=== PATIENT | female | born 1970 | race Caucasian/White ===

== ENCOUNTER 2017-07-30 11:45 | Emergency (ER) | payer OTHER ==
[~2017-07-30] VITALS: Ht 154.9 cm; Wt 70.3 kg
[~2017-07-30 11:45] MED LIST: ACID REDUCER; AMOXICILLIN500 MG PO; CATAFLAM50 MG PO; CYMBALTA30 MG PO; DIFLUCAN150 MG PO; IBU800 M1 PO; MIGRAINE CAPSUL1 CAP PO; MIGRAINE MED; MOTRIN,RUFEN400 MG; MOTRIN800 MG PO; NORFLEX100 MG PO; PRILOSEC20 M1 PO; PRILOSEC20 MG PO; TYLENOL W/CODEI1 TA2 PO; VICODIN 5/500 505 MG; VICODIN 5/500 505 MG PO; VICODIN 500 MG-1 TAB PO; VICODIN ES 7501 TAB PO; ZITHROMAX Z PA250 MG PO
== END 2017-07-30 13:40 | disposition home or self-care (01) ==
LOC: ED 11:45
DX: Z48.01 Encounter for change or removal of surgical wound dressing (principal); F17.200 Nicotine dependence, unspecified, uncomplicated; Z90.49 Acquired absence of other specified parts of digestive tract; Z98.890 Other specified postprocedural states; Z90.710 Acquired absence of both cervix and uterus; Z79.899 Other long term (current) drug therapy

== ENCOUNTER 2022-01-19 11:03 | Emergency (ER) | payer MEDICAID ==
[2022-01-19] MEDS ORDERED: NAPROSYN500 MG PO (17:22)
== END 2022-01-19 17:52 | disposition home or self-care (01) ==
LOC: ED 11:03
DX: M25.462 Effusion, left knee (principal); Z90.49 Acquired absence of other specified parts of digestive tract; Z98.890 Other specified postprocedural states; Z90.89 Acquired absence of other organs

== ENCOUNTER 2024-08-07 08:47 | Emergency (ER) | payer MEDICAID ==
[~2024-08-07] VITALS: Ht 154.9 cm; Wt 80.7 kg
[~2024-08-07 08:47] MED LIST changes: +NAPROSYN500 MG PO
[2024-08-07] MEDS ORDERED: Lidocaine Hydrochloride 2% 10 ML AMP SC ONE (10:20)
[2024-08-07] MEDS ORDERED: PERCOCET 5-3251 EACH PO (11:29)
== END 2024-08-07 12:07 | disposition home or self-care (01) ==
LOC: ED 08:47
DX: S52.532A Colles' fracture of left radius, initial encounter for closed fracture (principal); S52.602A Unspecified fracture of lower end of left ulna, initial encounter for closed fracture; Z98.890 Other specified postprocedural states; Z90.49 Acquired absence of other specified parts of digestive tract; W18.39XA Other fall on same level, initial encounter; Y93.89 Activity, other specified; Y92.89 Other specified places as the place of occurrence of the external cause; Y99.8 Other external cause status